=== PATIENT | female | born 1950 | race Two or more races ===

== ENCOUNTER → 2016-05-11 | Day surgery (SDC) | payer MEDICARE, MEDICAID ==
--- NOTE | 2016-05-09 16:27 | Pre-Procedure Note/Attestation ---
Pre-Procedure Note/Attestation Complete Prior to Procedure Planned Procedure: right Procedure Narrative: phaco with IOL, OD Indications for Procedure Pre-Operative Diagnosis: cataract Attestation I attest that I discussed the nature of the procedure; its benefits; risks and complications; and alternatives (and the risks and benefits of such alternatives ), prior to the procedure, with the patient (or the patient's legal outside sales account representative). I attest that, if there was a reasonable possibility of needing a blood transfusion, the patient (or the patient's legal outside sales account representative) was given the [facility] standardized written summary, pursuant to the [place] Blood Safety Act ([place] Health and Safety Code # 1645, as amended). I attest that I re-evaluated the patient just prior to the surgery and that there has been no change in the patient's H&P, except as documented below: SURESH MAE May 09, 2016 16:27
--- NOTE | 2016-05-09 16:29 | Opthalmology H&P ---
Ophthalmology H&P H&P Chief Complaint: decreased vision in right eye HPI Vision Affects Ability to: read, focus/use eyes together, manage personal affairs HPI Narrative blurry vvision Exam Visual Acuity: OD: CF OS: CF Tension: OD: 13 OS: 13 Eye Exam: normal OU: anterior chambers, corneas, external exam, levator function, marginal reflex distance, palpebral fissure-width, findings: fundus exam - OD: 0.7 OS: 0.8, lens - OD: ns OS: ns Assessment/Plan Diagnosis: (1) Cataract Treatment Plan: cataract extraction w/ lens implant Goals of Treatment: improvement of vision, enhance quality of life Attestation Attestation The risks and benefits of the surgery as well as alternative procedures were explained to the patient in detail. SURESH MAE May 09, 2016 16:29
[2016-05-11] VITALS (9 sets, daily range): BP systolic 125–156; BP diastolic 70–88
[~2016-05-11] VITALS: Ht 167.6 cm; Wt 66.7 kg
[~2016-05-11] MED LIST: ASPIRIN-LOW81 MG ORAL; ATORVASTATIN CA40 MG ORAL; Akten 3.5% 1ml Btl RIGHT EYE ONE; BSS 15ml BTL ONE; BSS 500ml btl ONE; Dexamethasone 4mg/ml vial ONE; EPINEPHrine 1mg/1ml Amp ONE; LR 1000ml 1,000 ML IVLG SCH; LR 1000ml ONE; METFORMIN HCL500 M1 ORAL; Maxitrol Opth Oint 3.5gm ONE; Midazolam 2mg/2ml Inj ONE; NIFEDIPINE ER30 MG ORAL; NS Irrig 1000ml ONE; Pilocarpine 2% Opth Soln ONE; Povidone-Iodine 5% opth solution ONE; Pred Forte 1% Opth Susp 1ml ONE; Propofol 10mg/ml 20ml IV ONE; Sodium Hyaluronate 14 mg/ml 0.85ml ONE; Sterile Water Irrig 1000ml IRRIG ONE; Tobramycin Op Soln 0.3% ONE; fentaNYL 100 mcg/2 mL IV ONE; fentaNYL 100 mcg/2 mL IV PRN
[2016-05-11] MEDS: Cyclopentolate 1% Opth Sol RIGHT EYE SCH ×3 (08:20→08:42)
[2016-05-11] MEDS: Diclofenac Sod 0.1% Op Soln RIGHT EYE SCH ×3 (08:20→08:43)
[2016-05-11] MEDS: Tropicamide 1% Opth Soln RIGHT EYE SCH ×3 (08:21→08:43)
[2016-05-11] MEDS: Phenylephrine 10% Opth Soln 5ml RIGHT EYE SCH ×3 (08:21→08:43)
--- NOTE | 2016-05-11 10:16 | Anethesia Preoperative Eval ---
Anesthesia Pre-op PMH/ROS General Date of Evaluation: May 11, 2016 Time of Evaluation: 09:38 Anesthesiologist: Genny ASA Score: ASA 3 Mallampati Score Class I : Soft palate, uvula, fauces, pillars visible Class II: Soft palate, uvula, fauces visible Class III: Soft palate, base of uvula visible Class IV: Only hard plate visible Mallampati Classification: Class II Surgeon: Paulette Diagnosis: R eye cataract Surgical Procedure: R eye cataract extraction with IOL Anesthesia History: none Family History: no anesthesia problems Allergies: Coded Allergies: No Known Allergies (Unverified , 05/09/16) Medications: see eMAR Past Medical History Cardiovascular: Reports: HTN, Denies: CAD, [place], arrhythmia, other, valve dz Pulmonary: Denies: COPD, JAMEEL, asthma, other Gastrointestinal/Genitourinary: Reports: GERD, Denies: CRI, ESRD, other Neurologic/Psychiatric: Denies: CVA, TIA, dementia, depression/anxiety, other Endocrine: Reports: DM - poorly controled on pills, Denies: hypothyroidism, other, steroids HEENT: Reports: cataract (L), cataract (R), Denies: [place] (L), [place] (R), glaucoma, other Hematology/Immune: Denies: DVT, anemia, bleeding disorder, other Musculoskeletal/Integumentary: Reports: DJD, Denies: DDD, OA, RA, edema, other PMH Narrative: as above PSxH Narrative: BTL Anesthesia Pre-op Phys. Exam Physician Exam Last Vital Signs Date Time Temp Pulse Resp B/P Pulse Ox O2 Delivery O2 Flow Rate FiO2 05/11/16 08:27 97.2 85 20 156/84 98 Room Air Constitutional: NAD Neurologic: CN 2-12 intact Cardiovascular: RRR, no M/R/G Respiratory: CTA Gastrointestinal: S/NT/ND Airway Exam Mallampati Score: Class II MO: full Neck: stiff Teeth: missing Dentures: no lower, no upper Anesthesia Pre-op A/P Labs see chart Studies Pre-op Studies: EKG - NSR Risk Assessment & Plan Assessment: ASA 3 Plan: MAC Status Change Before Surgery: No Pre-Antibiotics Drug: none AMY SEBASTIAN M.D. May 11, 2016 10:16
--- NOTE | 2016-05-11 10:36 | 48 Hour Post Anesthesia Eval ---
Post Anesthesia Evaluation Procedure: R eye cataract extraction with IOL Date of Evaluation: May 11, 2016 Time of Evaluation: 11:22 Blood Pressure Systolic: 135 0: 68 Pulse Rate: 72 Respiratory Rate: 20 Temperature (Fahrenheit): 97.3 O2 Sat by Pulse Oximetry: 99 Airway: patent Nausea: No Vomiting: No Pain Intensity: 1 Hydration Status: adequate Cardiopulmonary Status: stable Mental Status/LOC: patient returned to baseline Follow-up Care/Observations: n/a Post-Anesthesia Complications: none Follow-up care needed: ready to discharge AMY SEBASTIAN M.D. May 11, 2016 10:36
--- NOTE | 2016-05-11 10:38 | Immediate Post-Op Evaluation ---
Immediate Post-Op Evalulation Immediate Post-Op Evalulation Procedure: R eye cataract extraction with IOL Date of Evaluation: May 11, 2016 Time of Evaluation: 10:36 IV Fluids: 300 Blood Products: none Estimated Blood Loss: none Urinary Output: none Blood Pressure Systolic: 134 Blood Pressure Diastolic: 68 Pulse Rate: 72 Respiratory Rate: 20 O2 Sat by Pulse Oximetry: 99 Temperature (Fahrenheit): 97.4 Pain Score (1-10): 2 Nausea: No Vomiting: No Complications none Patient Status: awake, patent, none Hydration Status: adequate AMY SEBASTIAN M.D. May 11, 2016 10:38
--- NOTE | 2016-05-12 10:18 | Brief Operative Note ---
Immediate Post Operative Note Operative Note Chief Complaint: blurry vision Pre-op Diagnosis: cataract Procedure: phaco with IOL Post-op Diagnosis: Pseudophakia, OD Post-op Diagnosis: same as pre-op Findings: consistent w/pre-op dx studies Surgeon: Paulette Anesthesiologist: Genny Anesthesia: MAC Specimen: none Complications: none Estimated Blood Loss: none Drains: none Implant(s) used?: Yes SURESH MAE May 12, 2016 10:18
--- NOTE | 2016-05-12 10:19 | Operative Note - PDOC ---
Operative Note Operative Note Date of Operation/Procedure: May 11, 2016 Chief Complaint: blurry vision Pre-op Diagnosis: cataract Procedure: phaco with IOL Post-op Diagnosis: Pseudophakia, OD Post-op Diagnosis: same as pre-op Operative Findings: consistent w/pre-op dx studies Surgeon: Paulette Anesthesiologist: Genny Anesthesia: MAC Specimen: none Complications: none Estimated Blood Loss: none Drains: none Implant(s) used?: Yes Indications for Procedure cataract Description of Procedure This patient has been complaining visually significant cataract in the affected eye with the best corrected visual acuity under moderate glare conditions worse. The patient complains of difficulties with glare in performing activities of daily living and wants to manage personal affairs with comfort and accuracy and see well enough to move with safety at home and outdoors. ~~~ The risks, benefits and alternatives of the procedure were discussed with the patient in the office prior to scheduling surgery. All questions from the patient were answered after the surgical procedure was explained in detail. The risks of the procedure as explained to the patient include, but are not limited to, pain, infection, bleeding, loss of vision, retinal detachment, need for further surgery, loss of lens nucleus, double vision, etc. Alternative procedures were discussed which include, to do nothing or seek a second opinion. Informed consent for this procedure was obtained from the patient. The patient was referred to a primary care physician for a cardiopulmonary clearance prior to surgery, after proper evaluation was done patient was properly scheduled for outpatient surgery. The patient was brought to the operating room where the anesthesiologist established I.V. lines and cardiac monitoring leads. Mild intravenous sedation was administered.~~ The patient was then prepared with a 5% solution of povidone -iodine to the conjunctival fornix and lashes, and a 10% solution of povidone- iodine to the lids and periorbital skin. The patient was then draped in the usual sterile fashion. A lid speculum was then placed in the operative eye. A keratome blade was then used to create a biplanar incision into the anterior chamber. Viscoelastics was then instilled into the anterior chamber. A capsulorrhexis was then fashioned with an utrata forceps. BSS and a cannula were then used to hydrodissect and hydro delineate the lens. Paracentesis incision was made at 3 o'clock with sharp blade. The phacoemulsification unit, after being properly adjusted~ and tested, was then used to emulsify the nucleus followed by aspiration and irrigation of residual cortical material. Healon was then instilled into the anterior chamber. The corneal wound was then enlarged to the size of the optic with the selvin keratome blade. The intraocular lens was then inspected for right~ power and size~ and thought to be satisfactory. Then the lens was gently placed in the capsular bag. Positioning within the capsular bag was confirmed by direct visualization. Optic centration was accomplished with a Sinskey hook. Viscoelastics~ was removed from the anterior chamber using the irrigation and aspiration unit. The corneal wound was then tested for leaks and none were found. The lid speculum were then removed. Sponge and needle counts were correct. An eye patch and shield were placed over the operative eye. The patient was taken to the recovery room in stable condition. There were no complications. The patient tolerated the procedure well. The patient was then transferred to the ambulatory surgery unit in stable and satisfactory condition , was given detailed written instructions and asked to follow up~ in the office the next day. ~ SURESH MAE May 12, 2016 10:19
== END | disposition home or self-care (01) ==
LOC: SDS 06:31
DX: H26.9 Unspecified cataract (principal); I10 Essential (primary) hypertension; K21.9 Gastro-esophageal reflux disease without esophagitis; E11.9 Type 2 diabetes mellitus without complications; Z79.84 Long term (current) use of oral hypoglycemic drugs; M19.90 Unspecified osteoarthritis, unspecified site
CPT/HCPCS: 66984; J0171; J1100; J2250; J2704; J3010; J3370; J7120; V2632; 94003; 94150

== ENCOUNTER 2016-07-31 06:12 | Day surgery (SDC) | payer MEDICAID, MEDICARE ==
--- NOTE | 2016-07-30 14:04 | Pre-Procedure Note/Attestation ---
Pre-Procedure Note/Attestation Complete Prior to Procedure Planned Procedure: left Procedure Narrative: phaco with IOL Indications for Procedure Pre-Operative Diagnosis: cataract Attestation I attest that I discussed the nature of the procedure; its benefits; risks and complications; and alternatives (and the risks and benefits of such alternatives ), prior to the procedure, with the patient (or the patient's legal in store marketing representative). I attest that, if there was a reasonable possibility of needing a blood transfusion, the patient (or the patient's legal in store marketing representative) was given the [facility] standardized written summary, pursuant to the [place] Blood Safety Act ([place] Health and Safety Code # 1645, as amended). I attest that I re-evaluated the patient just prior to the surgery and that there has been no change in the patient's H&P, except as documented below: SURESH MAE July 30, 2016 14:04
--- NOTE | 2016-07-30 14:04 | Opthalmology H&P ---
Ophthalmology H&P H&P Chief Complaint: decreased vision in left eye HPI Vision Affects Ability to: read, focus/use eyes together HPI Narrative blurry vision Exam Visual Acuity: OD: 20/40 OS: HM Tension: OD: 16 OS: 19 Eye Exam: normal OU: anterior chambers, corneas, external exam, levator function, marginal reflex distance, palpebral fissure-width, findings: fundus exam - RPE changes, lens - OD: IOL OS: ns Assessment/Plan Diagnosis: (1) Cataract Treatment Plan: cataract extraction w/ lens implant Goals of Treatment: improvement of vision, enhance quality of life Attestation Attestation The risks and benefits of the surgery as well as alternative procedures were explained to the patient in detail. SURESH MAE July 30, 2016 14:04
[2016-07-31] VITALS (9 sets, daily range): BP systolic 114–139; BP diastolic 69–83
[~2016-07-31] VITALS: Ht 167.6 cm; Wt 68.0 kg
[~2016-07-31 06:12] MED LIST changes: -Akten 3.5% 1ml Btl RIGHT EYE ONE; -BSS 15ml BTL ONE; -BSS 500ml btl ONE; -Dexamethasone 4mg/ml vial ONE; -EPINEPHrine 1mg/1ml Amp ONE; -LR 1000ml 1,000 ML IVLG SCH; -LR 1000ml ONE; -Maxitrol Opth Oint 3.5gm ONE; -Midazolam 2mg/2ml Inj ONE; -NS Irrig 1000ml ONE; -Pilocarpine 2% Opth Soln ONE; -Povidone-Iodine 5% opth solution ONE; -Pred Forte 1% Opth Susp 1ml ONE; -Propofol 10mg/ml 20ml IV ONE; -Sodium Hyaluronate 14 mg/ml 0.85ml ONE; -Sterile Water Irrig 1000ml IRRIG ONE; -Tobramycin Op Soln 0.3% ONE; -fentaNYL 100 mcg/2 mL IV ONE; -fentaNYL 100 mcg/2 mL IV PRN
[2016-07-31] MEDS: Tropicamide 1% Opth Soln LEFT EYE SCH ×3 (06:52→07:11)
[2016-07-31] MEDS: Diclofenac Sod 0.1% Op Soln LEFT EYE SCH ×3 (06:52→07:11)
[2016-07-31] MEDS: Cyclopentolate 1% Opth Sol LEFT EYE SCH ×3 (06:52→07:11)
[2016-07-31] MEDS: Phenylephrine 2.5% Op Soln LEFT EYE SCH ×3 (06:53→07:11)
[2016-07-31] MEDS ORDERED: Tobramycin Op Soln 0.3% LEFT EYE ONE (07:00)
[2016-07-31] MEDS ORDERED: Akten 3.5% 1ml Btl LEFT EYE ONE (07:00)
[2016-07-31 07:12] LABS: BASOPHILS % (AUTO) 0.9 % (0.0-2.0); EOSINOPHILS % (AUTO) 0.8 % (0.0-3.0); LYMPHOCYTES % (AUTO) 17.5 % (20.0-45.0); MEAN CORPUSCULAR HEMOGLOBIN 28.8 PG (27.0-31.0); MEAN CORPUSCULAR HGB CONC 32.5 G/DL (32.0-36.0); MEAN CORPUSCULAR VOLUME 89 FL (80-99); MEAN PLATELET VOLUME 7.4 FL (6.5-10.1); MONOCYTES % (AUTO) 5.8 % (1.0-10.0); NEUTROPHILS % (AUTO) 74.9 % (45.0-75.0); PLATELET COUNT 242 K/UL (150-450); RED BLOOD COUNT 5.09 M/UL (4.20-5.40); RED CELL DISTRIBUTION WIDTH 11.6 % (11.6-14.8); WHITE BLOOD COUNT 10.8 K/UL (4.8-10.8)
[2016-07-31] MEDS ORDERED: LR 1000ml 1,000 ML IV SCH ×2 (07:30→08:30)
[2016-07-31 07:31] LABS: ANION GAP 18 (5-15); CALCIUM 9.6 mg/dL (8.6-10.2); CARBON DIOXIDE 21 mEQ/L (20-30); CHLORIDE 98 mEQ/L (98-107); CREATININE 0.6 mg/dL (0.5-0.9); GLOMERULAR FILTRATION RATE > 60 mL/min (>60); HEMOLYSIS 7; POTASSIUM 3.5 mEQ/L (3.4-4.9); SODIUM 137 mEQ/L (135-145)
[2016-07-31] MEDS ORDERED: Pred Forte 1% Opth Susp 1ml ONE (08:00)
[2016-07-31] MEDS ORDERED: Dexamethasone 4mg/ml vial ONE (08:00)
[2016-07-31] MEDS ORDERED: Maxitrol Opth Oint 3.5gm ONE (08:00)
[2016-07-31] MEDS ORDERED: LR 1000ml 1,000 ML IVLG SCH (08:24)
[2016-07-31] MEDS ORDERED: Sterile Water Irrig 1000ml IRRIG ONE (08:30)
[2016-07-31] MEDS ORDERED: fentaNYL 100 mcg/2 mL IV PRN (08:30)
[2016-07-31] MEDS ORDERED: Midazolam 2mg/2ml Inj ONE (08:30)
[2016-07-31] MEDS ORDERED: LR 1000ml ONE (08:30)
[2016-07-31] MEDS ORDERED: NS Irrig 1000ml ONE (08:30)
--- NOTE | 2016-07-31 08:44 | Anethesia Preoperative Eval ---
Anesthesia Pre-op PMH/ROS General Date of Evaluation: July 31, 2016 Time of Evaluation: 07:20 Anesthesiologist: Nata ASA Score: ASA 3 Mallampati Score Class I : Soft palate, uvula, fauces, pillars visible Class II: Soft palate, uvula, fauces visible Class III: Soft palate, base of uvula visible Class IV: Only hard plate visible Mallampati Classification: Class II Surgeon: Paulette Diagnosis: Cataract left eye Surgical Procedure: Extraction of cataract with IOL left eye Anesthesia History: none Family History: no anesthesia problems Allergies: Coded Allergies: No Known Allergies (Unverified , 05/09/16) Medications: see eMAR Past Medical History Cardiovascular: Reports: HTN, Denies: CAD, [place], arrhythmia, other, valve dz Pulmonary: Denies: COPD, JAMEEL, asthma, other Gastrointestinal/Genitourinary: Denies: CRI, ESRD, GERD, other Neurologic/Psychiatric: Denies: CVA, TIA, dementia, depression/anxiety, other Endocrine: Reports: DM, Denies: hypothyroidism, other, steroids HEENT: Reports: cataract (L), Denies: MOAPA (L), MOAPA (R), cataract (R), glaucoma, other Hematology/Immune: Denies: DVT, anemia, bleeding disorder, other Musculoskeletal/Integumentary: Denies: DDD, DJD, OA, RA, edema, other PMH Narrative: HTN, DM PSxH Narrative: Denies Anesthesia Pre-op Phys. Exam Physician Exam Last Vital Signs Date Time Temp Pulse Resp B/P Pulse Ox O2 Delivery O2 Flow Rate FiO2 07/31/16 07:02 98.6 82 20 139/80 96 Room Air Constitutional: NAD Neurologic: CN 2-12 intact Cardiovascular: RRR, no M/R/G Respiratory: CTA Gastrointestinal: S/NT/ND Airway Exam Mallampati Score: Class II MO: full ROM: full Teeth: intact Anesthesia Pre-op A/P Labs Hematology Test 07/31/16 06:50 White Blood Count 10.8 K/UL (4.8-10.8) Red Blood Count 5.09 M/UL (4.20-5.40) Hemoglobin 14.6 G/DL (12.0-16.0) Hematocrit 45.0 % (37.0-47.0) Mean Corpuscular Volume 89 FL (80-99) Mean Corpuscular Hemoglobin 28.8 PG (27.0-31.0) Mean Corpuscular Hemoglobin Concent 32.5 G/DL (32.0-36.0) Red Cell Distribution Width 11.6 % (11.6-14.8) Platelet Count 242 K/UL (150-450) Mean Platelet Volume 7.4 FL (6.5-10.1) Neutrophils (%) (Auto) 74.9 % (45.0-75.0) Lymphocytes (%) (Auto) 17.5 % (20.0-45.0) L Monocytes (%) (Auto) 5.8 % (1.0-10.0) Eosinophils (%) (Auto) 0.8 % (0.0-3.0) Basophils (%) (Auto) 0.9 % (0.0-2.0) Chemistry Test 07/31/16 06:50 Sodium Level 137 mEQ/L (135-145) Potassium Level 3.5 mEQ/L (3.4-4.9) Chloride Level 98 mEQ/L (98-107) Carbon Dioxide Level 21 mEQ/L (20-30) Anion Gap 18 (5-15) H Blood Urea Nitrogen 14 mg/dL (7-23) Creatinine 0.6 mg/dL (0.5-0.9) Estimat Glomerular Filtration Rate > 60 mL/min (>60) Glucose Level 173 mg/dL (74-106) H Calcium Level 9.6 mg/dL (8.6-10.2) Accucheck 149 Risk Assessment & Plan Assessment: Cataract left eye Plan: MAC Status Change Before Surgery: No Pre-Antibiotics Drug: None ACE CARIAS M.D. July 31, 2016 08:44
--- NOTE | 2016-07-31 08:45 | Immediate Post-Op Evaluation ---
Immediate Post-Op Evalulation Immediate Post-Op Evalulation Procedure: Extraction of cataract with IOL left eye Date of Evaluation: July 31, 2016 Time of Evaluation: 09:16 IV Fluids: 250 Blood Pressure Systolic: 132 Blood Pressure Diastolic: 80 Pulse Rate: 89 Respiratory Rate: 19 O2 Sat by Pulse Oximetry: 94 Temperature (Fahrenheit): 98.3 Pain Score (1-10): 0 Nausea: No Vomiting: No Complications No complication Patient Status: awake, patent, none Hydration Status: adequate Drug: None ACE CARIAS M.D. July 31, 2016 08:45
[2016-07-31] MEDS ORDERED: BSS 500ml btl ONE (09:14)
--- NOTE | 2016-07-31 09:14 | 48 Hour Post Anesthesia Eval ---
Post Anesthesia Evaluation Procedure: Extraction of cataract with IOL left eye Date of Evaluation: July 31, 2016 Time of Evaluation: 09:40 Blood Pressure Systolic: 135 0: 82 Pulse Rate: 88 Respiratory Rate: 20 O2 Sat by Pulse Oximetry: 95 Nausea: No Vomiting: No Pain Intensity: 0 Hydration Status: adequate Cardiopulmonary Status: Stable Mental Status/LOC: patient returned to baseline Follow-up Care/Observations: As per surgery Post-Anesthesia Complications: No anesthetic complication Follow-up care needed: N/A ACE CARIAS M.D. July 31, 2016 09:14
[2016-07-31] MEDS ORDERED: EPINEPHrine 1mg/1ml Amp ONE (09:15)
[2016-07-31] MEDS ORDERED: Sodium Hyaluronate 14 mg/ml 0.85ml ONE (09:15)
[2016-07-31] MEDS ORDERED: BSS 15ml BTL ONE (09:15)
[2016-07-31] MEDS ORDERED: Povidone-Iodine 5% opth solution ONE (09:15)
--- NOTE | 2016-07-31 15:55 | Brief Operative Note ---
Immediate Post Operative Note Operative Note Chief Complaint: blurry vision Pre-op Diagnosis: cataract, OS Procedure: phaco with IOL, OS Post-op Diagnosis: Pseudophakia, OS Post-op Diagnosis: same as pre-op Findings: consistent w/pre-op dx studies Surgeon: Paulette Anesthesiologist: Nata Anesthesia: MAC Specimen: none Complications: none Condition: stable Estimated Blood Loss: none Drains: none Implant(s) used?: Yes SURESH MAE July 31, 2016 15:55
--- NOTE | 2016-07-31 15:56 | Operative Note - PDOC ---
Operative Note Operative Note Date of Operation/Procedure: July 31, 2016 Chief Complaint: blurry vision Pre-op Diagnosis: cataract, OS Procedure: phaco with IOL, OS Post-op Diagnosis: Pseudophakia, OS Post-op Diagnosis: same as pre-op Operative Findings: consistent w/pre-op dx studies Surgeon: Paulette Anesthesiologist: Nata Anesthesia: MAC Specimen: none Complications: none Condition: stable Estimated Blood Loss: none Drains: none Implant(s) used?: Yes Indications for Procedure cataract Description of Procedure This patient has been complaining visually significant cataract in the affected eye with the best corrected visual acuity under moderate glare conditions worse. The patient complains of difficulties with glare in performing activities of daily living and wants to manage personal affairs with comfort and accuracy and see well enough to move with safety at home and outdoors. ~~~ The risks, benefits and alternatives of the procedure were discussed with the patient in the office prior to scheduling surgery. All questions from the patient were answered after the surgical procedure was explained in detail. The risks of the procedure as explained to the patient include, but are not limited to, pain, infection, bleeding, loss of vision, retinal detachment, need for further surgery, loss of lens nucleus, double vision, etc. Alternative procedures were discussed which include, to do nothing or seek a second opinion. Informed consent for this procedure was obtained from the patient. The patient was referred to a primary care physician for a cardiopulmonary clearance prior to surgery, after proper evaluation was done patient was properly scheduled for outpatient surgery. The patient was brought to the operating room where the anesthesiologist established I.V. lines and cardiac monitoring leads. Mild intravenous sedation was administered.~~ The patient was then prepared with a 5% solution of povidone -iodine to the conjunctival fornix and lashes, and a 10% solution of povidone- iodine to the lids and periorbital skin. The patient was then draped in the usual sterile fashion. A lid speculum was then placed in the operative eye. A keratome blade was then used to create a biplanar incision into the anterior chamber. Viscoelastics was then instilled into the anterior chamber. A capsulorrhexis was then fashioned with an utrata forceps. BSS and a cannula were then used to hydrodissect and hydro delineate the lens. Paracentesis incision was made at 3 o'clock with sharp blade. The phacoemulsification unit, after being properly adjusted~ and tested, was then used to emulsify the nucleus. Residual cortical material was aspirated with the irrigation and aspiration unit. Healon was then instilled into the anterior chamber. The corneal wound was then enlarged to the size of the optic with the selvin keratome blade. The intraocular lens was then inspected for right~ power and size~ and thought to be satisfactory. Then the lens was gently placed in the capsular bag. Positioning within the capsular bag was confirmed by direct visualization. Optic centration was accomplished with a Sinskey hook. Viscoelastics~ was removed from the anterior chamber using the irrigation and aspiration unit. The corneal wound was then tested for leaks and none were found. The lid speculum were then removed. Sponge and needle counts were correct. An eye patch and shield were placed over the operative eye. The patient was taken to the recovery room in stable condition. There were no complications. The patient tolerated the procedure well. The patient was then transferred to the ambulatory surgery unit in stable and satisfactory condition , was given detailed written instructions and asked to follow up~ in the office the next day. ~ ~ Dictated & Transcribed: [facility] Richelle LEONG JAMES July 31, 2016 15:56
== END 2016-07-31 10:25 | disposition home or self-care (01) ==
LOC: SDS 06:12
DX: H26.9 Unspecified cataract (principal); E11.9 Type 2 diabetes mellitus without complications; I10 Essential (primary) hypertension; Z79.84 Long term (current) use of oral hypoglycemic drugs; Z79.82 Long term (current) use of aspirin
CPT/HCPCS: 36415; 66984; 80048; 82962; 85025; J0171; J1100; J2250; J3370; J7120; V2632; 94003; 94150